=== PATIENT | female | born 1990 | race Caucasian/White ===

== ENCOUNTER 2019-08-04 08:43 | Emergency (ER) | payer SELFPAY ==
--- NOTE | 2019-08-04 08:54 | ED Physician Documentation ---
General Adult - HISTORIAN Historian: patient - HPI Stated Complaint: sore on bottom of left foot Chief Complaint: Skin Rash Onset: days ago (5) Timing: still present Severity: moderate Further Comments: yes (She reports she was just discharged from longterm. She was being treated for cellulitis and she was not given meds to take home. She states it started under her left second toe and traveled down . No fever. SHe felt when she was taking meds she was improving) - ROS CONST: no problems - PAST HX Past History: hypertension Immunizations: UTD Allergies/Adverse Reactions: Allergies Allergy/AdvReac Type Severity Reaction Status Date / Time No Known Allergies Allergy Verified 08/04/19 08:52 Home Medications: Ambulatory Orders Medication Instructions Recorded Lisinopril [Prinivil] 1 tab PO DAILY 08/04/19 Sertraline HCl [Zoloft] 1 tab PO DAILY 08/04/19 - SOCIAL HX Smoking History: cigarettes Alcohol Use: none Drug Use: none - FAMILY HX Family History: No - REVIEWED ASSESSMENTS Nursing Assessment Reviewed: Yes Vitals Reviewed: Yes General Adult Physical Exam - PHYSICAL EXAM GENERAL APPEARANCE: no distress EENT: eye inspection normal, no signs of dehydration NECK: normal inspection RESPIRATORY: no resp distress CVS: reg rate & rhythm RECTAL: normal exam BACK: normal inspection SKIN: other (left james foot with some crusting red/yellow areas . No pain to touch. No swelling. Pulses + ) EXTREMITIES: non-tender NEURO: oriented X3 Discharge Clincal Impression: Cellulitis and abscess of foot Referrals: Primary Doctor,No [Primary Care Provider] - 2 Days Comments: 1. Keep foot clean and dry 2. Bactrim DS take 1 by mouth twice daily x 10 days 3. Mupirocin apply small amount of cream to the foot three times per day x 5 days 4. See PCP in 2-4 days 5. Return to ER for any increasing concerns Condition: Stable Disposition: 01 HOME, SELF-CARE Decision to Admit: NO Date of Decison to Admit: 08/04/19 Decision Time: 09:04
[2019-08-04 08:58] VITALS: BP 142/96
== END 2019-08-04 09:06 | disposition home or self-care (01) ==
LOC: ED 08:43
DX: L03.116 Cellulitis of left lower limb (principal)
CPT/HCPCS: 99281; 99282

== ENCOUNTER 2019-08-27 13:19 | Emergency (ER) | payer SELFPAY ==
[2019-08-27 13:33] VITALS: BP 135/86
--- NOTE | 2019-08-27 13:34 | ED Physician Documentation ---
Skin Rash - HISTORIAN Historian: patient - HPI Stated Complaint: left foot infection Chief Complaint: Skin Rash Additional Information: 29 year old female presents with c/o "infection" to the bottom of her left foot. She was seen on 08/04 in the ER where she reported that she was just discharged from detention. She was being treated for cellulitis and she was not given meds to take home. She stated it started under her left second toe and traveled down . No fever. SHe felt when she was taking meds she was improving. Patient states that this has been going on for months and has been on many antibiotics; it goes away and comes back. Patient states that she cleans daily, does not go without socks or shoes. Onset: days ago Timing: still present Duration: persistent since Location: LLE Quality: itchy, burning Where: home Context: Medication Exposure: none Context: Food Exposure: none - ROS CONST: none CVS/RESP: none EYES/ENT: none GI/: none MS/SKIN/LYMPH: none NEURO/PSYCH: none - PAST HX Past History: hypertension Other History: none Surgeries/Procedures: No Immunizations: UTD Allergies/Adverse Reactions: Allergies Allergy/AdvReac Type Severity Reaction Status Date / Time No Known Allergies Allergy Verified 08/27/19 13:33 Home Medications: Ambulatory Orders Medication Instructions Recorded Lisinopril [Prinivil] 1 tab PO DAILY 08/04/19 Sertraline HCl [Zoloft] 1 tab PO DAILY 08/04/19 Sulfamethoxazole/Trimethoprim 1 each PO BID #20 tab 08/27/19 [Bactrim Ds] - SOCIAL HX Smoking History: greater than 1 pack/day Alcohol Use: none Drug Use: none - FAMILY HX Family History: none - VITAL SIGNS Vital Signs: Vital Signs Temp Pulse Resp BP Pulse Ox 98.3 F 78 19 135/86 97 08/27/19 13:38 08/27/19 13:38 08/27/19 13:38 08/27/19 13:38 08/27/19 13:38 - REVIEWED ASSESSMENTS Nursing Assessment Reviewed: Yes Vitals Reviewed: Yes Skin Rash Physical Exam - EXAM General Appearance: no acute distress, alert Skin: warm,dry, skin rash (bottom of left foot) Location: extremities (left foot) Character: erythematous Symptoms: warmth, tenderness Extremities: non-tender, nml ROM EENT: lips nml, gums nml, pharynx nml Neck: trachea midline Respiratory: breath sounds normal CVS: heart sounds nml Abdomen: non-tender Neuro/Psych: oriented x3, CN's nml as tested, motor nml, sensation nml, mood/affect nml Discharge Clincal Impression: Cellulitis of foot Prescriptions: Sulfamethoxazole/Trimethoprim [Bactrim Ds] 1 each PO BID #20 tab Referrals: Primary Doctor,No [Primary Care Provider] - 2 Days Additional Instructions: Take antibiotic as directed Establish care with PCP Will refer you to Podiatry for frequent re-occurring foot infections Condition: Good Disposition: HOME, SELF-CARE Decision to Admit: NO Decision Time: 14:00
== END 2019-08-27 13:40 | disposition home or self-care (01) ==
LOC: ED 13:19
DX: L03.116 Cellulitis of left lower limb (principal)
CPT/HCPCS: 99283; 99284